=== PATIENT | female | born 1930 | race Caucasian/White ===

== ENCOUNTER 2019-02-20 19:11 | Emergency (ER) | payer MEDICARE, OTHER ==
[~2019-02-20] VITALS: Ht 165.1 cm; Wt 65.0 kg
--- NOTE | 2019-02-20 19:33 | NUR ---
ice bag applied to posterior head
--- NOTE | 2019-02-20 19:33 | ED Fall/Injury ---
General Chief Complaint: Trauma-Non Activation Stated Complaint: FALL Nursing Triage Note: pt walking with cane and tripped falling backwards striking head, no loc, pt does state neck is sore Source: patient, EMS History of Present Illness Date Seen by Provider: Feb 20, 2019 Time Seen by Provider: 19:11 Initial Comments 89-year-old female presenting with complaints of having a fall at [facility]. She has a history of having balance issues and usually uses a walker three-pronged cane however [facility] she was sikhism and had only taken the simple cane. She hasn't lost her balance and fallen backward hitting the back of her head. She denies losing consciousness and has no change in her vision or nausea or vomiting. She does not feel dizzy or lightheaded now. She has no neck pain or hip or back pain. She has some chronic right knee pain that is no worse than normal. She was at s[employer]ism and several sikhism members had insisted that she come to be evaluated and checked out. She denies taking any blood thinners or aspirin. She denies any burning or discomfort with urination. 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 She is not coughing more than normal. She has no wheezing currently. She denies any chest pain or tightness in her chest. She has mild pain to the back of her head where she hit it and there is some swelling from the hematoma. Allergies and Home Medications Allergies Coded Allergies: Codeine (Verified Allergy, Unknown, 11/22/05) Pantoprazole (Verified Allergy, Unknown, FLUSHING OF FACE, CAN TAKE NEXIUM, 11/22/05) Patient Home Medication List Home Medication List Reviewed: Yes Review of Systems Review of Systems Constitutional: No chills, No dizziness, No fever Eyes: Denies Photophobia, Denies Vision Changes Ears, Nose, Mouth, Throat: denies ear pain, denies ear discharge, denies nose pain, denies epistaxis, denies loose teeth Respiratory: cough (chronic); No hemoptysis, No orthopnea, No stridor, No wheezing Cardiovascular: No chest pain Gastrointestinal: No nausea, No vomiting Genitourinary: No dysuria, No frequency Musculoskeletal: joint pain (chronic pain in right knee); No neck pain Skin: other (scalp hematoma to back of head from fall tonight) Psychiatric/Neurological: Headache (mild headache to back of head from fall tonight, no LOC) Past Fjhrqcf-[id number] Hx Past Med/Social Hx: Reviewed Nursing Past Med/Soc Hx Patient Social History Alcohol Use: Denies Use Recreational Drug Use: No Smoking Status: Never a Smoker 2nd Hand Smoke Exposure: No Recent Foreign Travel: No Contact w/Someone Who Travel: No Physical Abuse: No Sexual Abuse: No Mistreated: No Fear: No Physical Exam Vital Signs Vital Signs - First Documented 02/20/19 19:17 Temp 36.3 Pulse 96 Resp 18 B/P (MAP) 138/96 (110) Pulse Ox 93 O2 Delivery Room Air Capillary Refill : Height, Weight, BMI Height: '" Weight: lbs. oz. 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, no motor/sensory deficits, alert, normal mood/affect, oriented x 3 Skin: normal color, warm/dry, other (scalp contusion with hematoma occiput) [place] Coma Score Best Eye Response: (4) Open Spontaneously Best Verbal Response: (5) Oriented Best Motor Response: (6) Obeys Commands [place] Total: 15 Progress/Results/Core Measures Results/Orders My Orders Orders - ZAIRA MARAVILLA MD Ice: Apply To Affected Area (02/20/19 19:27) Vital Signs/I&O 02/20/19 19:17 Temp 36.3 Pulse 96 Resp 18 B/P (MAP) 138/96 (110) Pulse Ox 93 O2 Delivery Room Air Progress Progress Note : Progress Note Patient reassured there is no acute signs of intracranial hemorrhage or skull fracture. She has no neck pain over the vertebral bodies or muscles. She has no pain and is been walking. Encouraged to use her walker or 3 pronged cane to help prevent further falls. Counseled on care of scalp hematoma and encouraged follow-up with primary for further concerns Departure Impression Primary Impression: Traumatic hematoma of scalp Qualified Codes: S00.03XA - Contusion of scalp, initial encounter Additional Impression: Fall Qualified Codes: W19.XXXA - Unspecified fall, initial encounter Disposition: HOME, SELF-CARE Condition: Stable Departure-Patient Inst. Decision time for Depature: 19:31 Referrals: HARJEET MOON MD, JOHN P DO (PCP/Family) Primary Care Physician Patient Instructions: Minor Head Injury (DC), Preventing Falls in the Older Adult Add. Discharge Instructions: Use ice 15-20 minutes every few hours to your scalp to help with swelling and pain. Try to sleep with your head propped up on an extra pillow or two for the next few nights to help with pain and swelling. Take Acetaminophen or Ibuprofen to help with pain Follow up with clinic for continued problems/concerns Make sure you are using your Walker or 3 pronged Cane to help keep you more steady with your walking and help prevent you from falling. All discharge instructions reviewed with patient and/or family. Voiced underst anding. ZAIRA MARAVILLA MD Feb 20, 2019 19:33
[2019-02-20 19:39] VITALS: BP 164/61
== END 2019-02-20 19:39 | disposition home or self-care (01) ==
LOC: EDUNIT# 19:11 → ER FS 19:14
DX: S00.03XA Contusion of scalp, initial encounter (principal); Z88.5 Allergy status to narcotic agent; Z88.8 Allergy status to other drugs, medicaments and biological substances; R40.2142 Coma scale, eyes open, spontaneous, at arrival to emergency department; R40.2252 Coma scale, best verbal response, oriented, at arrival to emergency department; R40.2362 Coma scale, best motor response, obeys commands, at arrival to emergency department; W01.10XA Fall on same level from slipping, tripping and stumbling with subsequent striking against unspecified object, initial encounter; Y92.22 Religious institution as the place of occurrence of the external cause
CPT/HCPCS: 99283